=== PATIENT | male | born 1980 | race Caucasian/White ===

== ENCOUNTER 2020-10-29 09:52 | Emergency (ER) | payer SELFPAY ==
[~2020-10-29] VITALS: Ht 162.6 cm; Wt 69.0 kg
--- NOTE | 2020-10-29 10:23 | NUR ---
C/o hoarse voice and SOB s/p working around lots of dust particles. Also reports having chest pain on and off x 1 day. No n/v/d. Pt in bed in gown with cont spo2, bp q 30 min, side rials up x2, call light in reach. awating md huff.
[2020-10-29] MEDS ORDERED: SODIUM CHLORIDE 0.9% 1,000ML IVBOLUS ONE (11:00)
[2020-10-29] MEDS ORDERED: SODIUM CHLORIDE FLUSH 10ML SYR IVF ONE (11:00)
[2020-10-29] MEDS ORDERED: KETOROLAC 30 MG/1 ML IVPush ONE (11:00)
[2020-10-29] MEDS ORDERED: KETOROLAC 30 MG/1 ML ONE (11:02)
[2020-10-29 11:32] LABS: BASOPHILS % (AUTO) 1 % (0-1); EOSINOPHILS % (AUTO) 1 % (1-7); LYMPHOCYTES % (AUTO) 12 % (22-44); MEAN CORPUSCULAR HEMOGLOBIN 34.3 pg (27.5-34.5); MEAN CORPUSCULAR HGB CONC 34.3 g/dL (33.2-36.2); MEAN PLATELET VOLUME 8.4 fL (7.4-10.4); MONOCYTES % (AUTO) 11 % (2-9); NEUTROPHILS % (AUTO) 75 % (42-75); PLATELET COUNT 210 x10^3/uL (130-400); RED BLOOD COUNT 4.64 x10^6/uL (4.38-5.82); RED CELL DISTRIBUTION WIDTH 13.4 % (9.4-14.8)
--- NOTE | 2020-10-29 11:39 | NUR ---
Pt sleeping, rr even unlabored. nad
[2020-10-29 11:43] LABS: CHLORIDE 108 mmol/L (98-107)
[2020-10-29 11:44] LABS: ANION GAP 10 mmol/L (5-15); CALCIUM 9.1 mg/dL (8.5-10.1)
[2020-10-29 11:45] LABS: ALANINE AMINOTRANSFERASE 398 U/L (12-78); ALBUMIN 3.4 g/dL (3.4-5.0); ALKALINE PHOSPHATASE 98 U/L (45-117); BILIRUBIN,TOTAL 0.7 mg/dL (0.2-1.0); CREATININE 0.63 mg/dL (0.7-1.3); TOTAL PROTEIN 8.1 g/dL (6.4-8.2)
[2020-10-29 13:16] VITALS: BP 124/74
== END 2020-10-29 13:18 | disposition home or self-care (01) ==
LOC: ED 13:05
DX: R09.1 Pleurisy (principal); Z20.822 Contact with and (suspected) exposure to COVID-19; J04.0 Acute laryngitis; R06.02 Shortness of breath; R00.0 Tachycardia, unspecified; F17.200 Nicotine dependence, unspecified, uncomplicated
CPT/HCPCS: 36415; 71045; 80053; 83690; 85025; 85379; 93005; 96361; 96374; 99285; J1885; J7030; U0003; U0005

== ENCOUNTER 2020-11-02 05:47 | Emergency (ER) | payer OTHER ==
[~2020-11-02] VITALS: Ht 170.2 cm; Wt 70.1 kg
--- NOTE | 2020-11-02 05:52 | NUR ---
EKG DONE IN TRIAGE.
--- NOTE | 2020-11-02 05:59 | NUR ---
PT C/O OF SOB, COUGH WITH GREEN SPUTUM, CP, AND FATIGUE SINCE SUNDAY. ATTACHED TO MONITORS, VSS. NADN AT MOMENT. BED IN LOW, RAILS ENGAGED, CALL LIGHT ON LAP. ERMD AT BEDSIDE FOR EVAL.
--- NOTE | 2020-11-02 07:00 | NUR ---
gave report to fernanda wilkes, transfer of care.
--- NOTE | 2020-11-02 07:03 | NUR ---
REPORT FROM JESSI VEGA. PT SITTING UP SLIGHTLY RECLINED IN BED. RESPIRATIONS EVEN AND UNLABORED ON RA. NAD NOTED AT THIS TIME. VSS. THIS RN PLACED PT ON CARDIAC MONITORING. SIDE RAILS UP, CALL LIGHT IN REACH. AWAITING LAB AND IMAGING.
[2020-11-02 07:09] LABS: BASOPHILS % (AUTO) 1 % (0-1); EOSINOPHILS % (AUTO) 3 % (1-7); LYMPHOCYTES % (AUTO) 17 % (22-44); MEAN CORPUSCULAR HEMOGLOBIN 34.3 pg (27.5-34.5); MEAN CORPUSCULAR HGB CONC 34.4 g/dL (33.2-36.2); MEAN PLATELET VOLUME 8.5 fL (7.4-10.4); MONOCYTES % (AUTO) 13 % (2-9); NEUTROPHILS % (AUTO) 66 % (42-75); PLATELET COUNT 208 x10^3/uL (130-400); RED BLOOD COUNT 4.54 x10^6/uL (4.38-5.82); RED CELL DISTRIBUTION WIDTH 13.7 % (9.4-14.8)
[2020-11-02 07:19] LABS: ALBUMIN 3.1 g/dL (3.4-5.0); CALCIUM 8.8 mg/dL (8.5-10.1); CHLORIDE 107 mmol/L (98-107)
[2020-11-02 07:24] LABS: ALANINE AMINOTRANSFERASE 241 U/L (12-78); ALKALINE PHOSPHATASE 94 U/L (45-117); ANION GAP 10 mmol/L (5-15); BILIRUBIN,TOTAL 0.8 mg/dL (0.2-1.0); CREATININE 0.71 mg/dL (0.7-1.3); TOTAL PROTEIN 7.8 g/dL (6.4-8.2); TROPONIN I < 0.015 ng/mL (0.000-0.045)
[2020-11-02 07:55] VITALS: BP 118/81
== END 2020-11-02 07:58 | disposition home or self-care (01) ==
LOC: ED 07:52
DX: R09.1 Pleurisy (principal); B34.9 Viral infection, unspecified; R06.02 Shortness of breath; R42 Dizziness and giddiness; R00.0 Tachycardia, unspecified; F17.210 Nicotine dependence, cigarettes, uncomplicated
CPT/HCPCS: 36415; 71045; 80053; 84484; 85025; 93005; 99285